=== PATIENT | male | born 1965 | race Caucasian/White ===

== ENCOUNTER 2016-05-15 15:00 | Emergency (ER) | payer OTHER ==
[~2016-05-15] VITALS: Ht 182.9 cm; Wt 113.6 kg
[2016-05-15 15:17] VITALS: BP 132/75; PULSE 104; RESP 20; O2SAT 99
--- NOTE | 2016-05-15 15:55 | ED.REPORT ---
HPI-Abd Pain M 40 and Over Date of Service May 15, 2016 ED Provider: Dr. Garg Pt is a 51 year old male with a hx of DM and HTN presenting to the ED complaining of severe lower abdominal pain onset 2-3 hours ago. Associated symptoms include vomiting >20, diarrhea >20, diaphoresis. Denies fever, chills. His reports that symptoms began about 45 minutes after the patient ate today. Nursing Notes Stated Complaint: VOMITING/DIARRHEA Chief Complaint: Male Abdominal Pain Nursing Notes Reviewed: Yes Allergies: Coded Allergies: No Known Allergies (Unverified , 05/15/16) Scheduled PRN Ondansetron ODT (Ondansetron ODT) 8 Mg Tab.rapdis 8 MG PO Q6H PRN PRN For Nausea /Vomiting General Time Seen by MD: 15:55 Chief Complaint Abdominal pain Hx Obtained From: Patient, Spouse Arrived By: Walk-in Sudden in Onset?: Yes Onset Occurred: 1 - 4 hours ago Context of Onset: Eating Symptom Duration: Since onset Progression since Onset: Constant Location: : Abdomen lower Quality: Painful Severity: Current: Severe Severity: Maximum: Severe Recent Healthcare: No recent doctor visit, No recent hospitalization Similar Sx Previous: No Past Medical History Past Medical History Pancreatitis Reports: Diabetes mellitus, Hypertension Past Surgical History denies Smoking History Unknown if Ever Smoker Ambulatory Status Independent Review of Systems Constitutional: Denies: Chills, Fever GI: Reports: Abdominal pain, Diarrhea, Nausea, Vomiting Complete sys rev & neg: except as marked. Skin: Reports Diaphoresis Physical Exam Initial Vital Signs Vital Signs (First) Date Time Temp Pulse Resp B/P Pulse Ox O2 Delivery O2 Flow Rate FiO2 05/15/16 15:17 35.9 104 20 132/75 99 Room Air Initial VS: Reviewed, Vital signs abnormal Head / Eyes: Atraumatic, Normocephalic, PERRL Neurologic: Alert, Oriented, Nonfocal Psychiatric: Mood/affect normal, Behavior normal, Normal thought content General/Constitutional: Awake, Alert Respiratory / Chest: Breath sounds NL, Breath sounds = bilat, No respiratory distress, No rales, No rhonchi, No wheezing Cardiovascular: Heart rate NL, Regular rhythm, Heart sounds NL, Peripheral circulation NL Abdomen: No guarding, No rebound Tenderness/Guarding/Rebound: Positive: Tender diffuse Decreased bowel sounds. Skin: Intact Skin cool, diaphoretic. Upper Extremity / MS: No edema Lower Extremity / Pelvis / MS: No edema Interpretation & Diagnostics Lab Results Interpretation Result Diagram: 05/15/16 1617 05/15/16 1617 Test 05/15/16 16:17 White Blood Count 16.1th/mm3 (3.8-10.1) Red Blood Count 5.58mil/mm3 (4.40-5.80) Hemoglobin 15.7g/dL (13.8-17.2) Hematocrit 47.3% (41.0-50.0) Mean Corpuscular Volume 84.8fL (81-100) Mean Corpuscular Hemoglobin 28.1pg (27.0-35.0) Mean Corpuscular Hemoglobin Concent 33.2% (32.0-37.0) Red Cell Distribution Width 14.9% (12.3-15.4) Platelet Count 333bil/L (150-400) Neutrophils (%) (Auto) 85.7% (40-74) Lymphocytes (%) (Auto) 8.0% (14-46) Monocytes (%) (Auto) 5.0% (4-12) Eosinophils (%) (Auto) 0.6% (0-5) Basophils (%) (Auto) 0.1% (0-3) Sodium Level 139mEq/L (134-144) Potassium Level 4.4mEq/L (3.5-5.2) Chloride Level 98mEq/L (97-108) Carbon Dioxide Level 18mmol/L (18-29) Blood Urea Nitrogen 30mg/dL (6-24) Creatinine 1.67mg/dL (0.76-1.27) Estimat Glomerular Filtration Rate 46mL/min (>59) Glucose Level 163mg/dL (60-99) Calcium Level 10.4mg/dL (8.5-10.1) Magnesium Level 1.8mg/dL (1.6-2.6) Total Bilirubin 0.4mg/dL (0.0-1.2) Aspartate Amino Transf (AST/SGOT) 52U/L (0-50) Alanine Aminotransferase (ALT/SGPT) 81U/L (0-44) Alkaline Phosphatase 57U/L (25-150) Total Protein 9.2g/dL (6.4-8.4) Albumin 5.2g/dL (3.4-5.0) Lipase 38U/L (13-60) Hold Metzger Top Tube Received (Received) Re-Eval/Medical Decision Med Decision/Clinical Course The patient presents with severe vomiting and diarrhea a few hours after eating food at a gas station. He has generalized abdominal pain but no symptoms concerning for peritonitis. The patient did not have any further episodes of diarrhea while here and was given fluids. He was clinically dehydrated and this is also on his chemistry the patient is currently improved and discharged home. Differential diagnosis considered were bowel ischemia, gastroenteritis, and diverticulitis. Time of Eval: 17:32 Patient Status: Condition improved Re-Evaluation/Progress Note: Discussed plan for discharge. Pt understands and agrees. Pt has had no further episodes of diarrhea here. Counseled Regarding: Diagnosis, Lab results, Need for follow-up, When/why to return to ED Discharge & Departure Primary Impression: Gastroenteritis Disposition: Home Vital Signs - All Vital Signs Date Time Temp Pulse Resp B/P Pulse Ox O2 Delivery O2 Flow Rate FiO2 05/15/16 17:23 36.6 05/15/16 15:17 35.9 104 20 132/75 99 Room Air )( All Prior VS Reviewed: Yes Condition: Improved Patient Instructions: Gastroenteritis (ED) Additional Instructions: You likely have food poisoning. Drink frequent small amounts of fluids. Drink a blend diet such as rice, applesauce or bananas. No dairy for 1 week Return to the ER with any new or worsening symptoms. Referrals: Tom Baker DO (PCP) Nathaly Salas MD (Family) Scribe Attestation Portions of this note were transcribed by Camila Naranjo. I, Dr. Garg personally performed the history, physical exam and medical decision-making; I reviewed and confirmed the accuracy of the information in the transcribed note. Signed by : Olinda Beckford, 05/15/2016 and [id number]. copies to: Tom Baker DO; Nathaly Salas MD, Jena M MD May 15, 2016 15:55 CAMILA NARANJO May 15, 2016 16:10
[2016-05-15] MEDS ORDERED: HYDROmorphone 0.5 mg/0.5 mL iSecure Syringe IVPUSH ONE (16:10)
[2016-05-15] MEDS ORDERED: 0.9% Sodium Chloride 1,000 ML IV ONE ×2 (16:10→17:10)
[2016-05-15 16:26] LABS: BASOPHILS % (AUTO) 0.1 % (0-3); EOSINOPHILS % (AUTO) 0.6 % (0-5); Mean Corpuscular Hemoglobin 28.1 pg (27.0-35.0); Mean Corpuscular Volume 84.8 fL (81-100); NEUTROPHILS % (AUTO) 85.7 % (40-74); Platelet Count 333 bil/L (150-400)
[2016-05-15] MEDS: Ondansetron 2 mg/mL 2 mL Inj IVPUSH PRN ×2 (16:46→18:48)
[2016-05-15 17:04] LABS: Magnesium 1.8 mg/dL (1.6-2.6)
[2016-05-15 17:12] VITALS: BP 123/63; PULSE 99; O2SAT 95
[2016-05-15] MEDS ORDERED: ONDA8TAB10 PO (17:36)
[2016-05-15 19:07] VITALS: BP 135/58; PULSE 92; RESP 18; O2SAT 94
== END 2016-05-15 19:11 | disposition home or self-care (01) ==
LOC: SED 15:00
DX: K52.9 Noninfective gastroenteritis and colitis, unspecified (principal); E11.9 Type 2 diabetes mellitus without complications; I10 Essential (primary) hypertension
CPT/HCPCS: 36415; 80053; 82948; 83690; 83735; 85025; 96361; 96374; 96375; 96376; 99285; J1170; J2405; J7030